=== PATIENT | female | born 1990 | race Caucasian/White ===

== ENCOUNTER 2022-01-01 00:42 | Inpatient (IN) | payer BC ==
[~2022-01-01] VITALS: Ht 175.3 cm; Wt 112.9 kg
[2022-01-01] MEDS ORDERED: PRENATAL VITAM1 EAC3 PO (02:05)
[2022-01-01 02:19] LABS: HEMOGLOBIN 13.1 gm/dl (12.3-15.3); RED BLOOD COUNT 4.2 M/UL (4.00-5.10); WHITE BLOOD COUNT 10.4 K/UL (4.5-11.0)
[2022-01-01] MEDS ORDERED: DOCUSATE SODIU250 MG PO (16:04)
[2022-01-01] MEDS ORDERED: IBUPROFEN600 MG PO (16:04)
[2022-01-02 05:42] LABS: HEMOGLOBIN 11.7 gm/dl (12.3-15.3)
== END 2022-01-03 12:19 | disposition home or self-care (01) | DRG 807 ==
LOC: GENOP 00:42 → OB 02:07
PROVIDERS: ADMIT Obstetrics & Gynecology
PROC: 10E0XZZ Delivery of Products of Conception, External Approach (ICD-10-PCS; principal; 2022-01-01)
PROC: 0KQM0ZZ Repair Perineum Muscle, Open Approach (ICD-10-PCS; 2022-01-01)
PROC: 3E033VJ Introduction of Other Hormone into Peripheral Vein, Percutaneous Approach (ICD-10-PCS; 2022-01-01)
PROC: 3E0234Z Introduction of Serum, Toxoid and Vaccine into Muscle, Percutaneous Approach (ICD-10-PCS; 2022-01-01)
PROC: 10H07YZ Insertion of Other Device into Products of Conception, Via Natural or Artificial Opening (ICD-10-PCS; 2022-01-01)
DX: O99.284 Endocrine, nutritional and metabolic diseases complicating childbirth (principal); Z37.0 Single live birth; O70.1 Second degree perineal laceration during delivery; E28.2 Polycystic ovarian syndrome; Z3A.38 38 weeks gestation of pregnancy; Z20.822 Contact with and (suspected) exposure to COVID-19; Z81.8 Family history of other mental and behavioral disorders; Z82.49 Family history of ischemic heart disease and other diseases of the circulatory system; Z83.79 Family history of other diseases of the digestive system; Z80.9 Family history of malignant neoplasm, unspecified; Z83.3 Family history of diabetes mellitus; Z23 Encounter for immunization
CPT/HCPCS: 36415; 81001; 83518; 85014; 85018; 85025; 90471; 90715; J0595; J2590; J3010; J7120; U0002